=== PATIENT | female | born 1960 | race African-American/Black ===

== ENCOUNTER 2016-07-17 10:24 | Emergency (ER) | payer BC ==
[~2016-07-17] VITALS: Ht 167.6 cm; Wt 121.1 kg
[2016-07-17 10:27] VITALS: BP 178/92
--- NOTE | 2016-07-17 11:22 | RAD ---
Right wrist, 3 views, 07/17/2016: History: Injury, pain There is minimal trabecular deformity in the midportion of the navicular bone perhaps due to old trauma. There is no radiographic evidence of avascular necrosis. No acute fracture or dislocation is identified. There is minimal subcutaneous edema. IMPRESSION: No acute bony abnormality is detected.
[2016-07-17] MEDS ORDERED: NAPR500T PO (11:34)
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
== END 2016-07-17 11:42 | disposition home or self-care (01) ==
LOC: ER 10:24
DX: S63.501A Unspecified sprain of right wrist, initial encounter (principal); I10 Essential (primary) hypertension; E11.9 Type 2 diabetes mellitus without complications; X58.XXXA Exposure to other specified factors, initial encounter; Y93.I9 Activity, other involving external motion; Y92.89 Other specified places as the place of occurrence of the external cause; Y99.8 Other external cause status
CPT/HCPCS: 73110; 99284

== ENCOUNTER → 2016-08-28 | Outpatient (CLI) | payer BC ==
[~2016-08-28] MED LIST: NAPR500T PO
--- NOTE | 2016-08-28 13:21 | KCIC ---
Clavicle right, two views Indication: Swelling in the region of the right clavicle at the sternoclavicular joint. Time of exam 1:00 p.m. Two views of the right clavicle were obtained. The alignment at the acromioclavicular joint appears normal. Alignment at the sternoclavicular joint is unremarkable. No bony abnormality is seen. There are no fractures. The glenohumeral alignment is normal. Impression: No acute feature detected. Electronically signed by: Michael Smith MD (Aug 28, 2016 13:20:10)
== END | disposition home or self-care (01) ==
LOC: KCIC 12:45
PROVIDERS: ATTEND Family Medicine
DX: R22.1 Localized swelling, mass and lump, neck (principal)
CPT/HCPCS: 73000

== ENCOUNTER → 2016-09-10 | Outpatient (CLI) | payer BC ==
--- NOTE | 2016-09-10 16:49 | KCIC ---
PROCEDURE MR of the right wrist HISTORY Right wrist pain. Injury June 2016. TECHNIQUE Routine multiplanar sequences are obtained. COMPARISON None FINDINGS The triangular fibrocartilage demonstrates some mild signal at its radial attachment compatible with degeneration. No evidence of through and through tear. The extensor carpi ulnaris tendon demonstrates mild tendinosis but no tear or subluxation. Mild 1st extensor compartment tendon sheath fluid without intrinsic tendon tear. There is also mild edema surrounding the 1st compartment tendons. The flexor tendons are intact. Median nerve unremarkable. Scapholunate ligament demonstrates some increased signal and thickening compatible with a sprain or degeneration. No evidence of through and through rupture. Mild reactive cystic type changes at the proximal scaphoid deep to the ligament attachment. No significant lunate tilt. No evidence of lunotriquetral ligament tear. No evidence of bone lesion or acute fracture. No significant joint effusion. IMPRESSION 1. Mild tendon sheath fluid at the 1st extensor compartment, with surrounding edema, compatible with mild de Quervain tenosynovitis. 2. Mild extensor carpi ulnaris tendinosis. 3. Chronic appearing scapholunate ligament degeneration, without evidence of a through and through rupture., Electronically signed by: eJsus Guzman MD (Sep 10, 2016 16:47:54)
== END | disposition home or self-care (01) ==
LOC: KCIC MRI 15:02
PROVIDERS: ATTEND Orthopaedic Surgery Sports Medicine
DX: M25.531 Pain in right wrist (principal)
CPT/HCPCS: 73221